=== PATIENT | female | born 1985 | race Caucasian/White ===

== ENCOUNTER 2016-06-10 22:03 | Emergency (ER) | payer MEDICAID ==
--- NOTE | 2016-06-10 22:19 | EDM.PDOC ---
ED HPI GENERAL MEDICAL PROBLEM - General Chief Complaint: General Stated Complaint: PT HAS ALLERGIC REACTION Time Seen by Provider: 06/10/16 22:08 - History of Present Illness INITIAL COMMENTS - FREE TEXT/NARRATIVE: HISTORY AND PHYSICAL: History of present illness: Patient is 30-year-old female with history of chronic pain syndrome related to breast reduction surgery and postoperative complications who was recently prescribed Dilaudid for pain and is here for some bridge therapy since she was unable to fill this tonight. Review of systems: As per history of present illness and below otherwise all systems reviewed and negative. Past medical history: As per history of present illness and as reviewed below otherwise noncontributory. Surgical history: As per history of present illness and as reviewed below otherwise noncontributory. Social history: No reported history of drug or alcohol abuse. Family history: As per history of present illness and as reviewed below otherwise noncontributory. Physical exam: Atraumatic normocephalic lungs clear to auscultation heart S1-S2 abdomen benign extremities benign neurologic alert and oriented with nonfocal exam Diagnostics: None Therapeutics: None Impression: #1 pain syndrome #2 history of breast reduction surgery with postoperative complication Definitive disposition and diagnosis as appropriate pending reevaluation and review of above. - Related Data Allergies Allergy/AdvReac Type Severity Reaction Status Date / Time adhesive Allergy Rash Verified 06/10/16 22:11 cefaclor [From Ceclor] Allergy Rash Verified 06/10/16 22:11 levofloxacin [From Levaquin] Allergy Rash Verified 06/10/16 22:11 oxycodone Allergy Rash Verified 06/10/16 22:11 Sulfa (Sulfonamide Allergy Rash Verified 06/10/16 22:11 Antibiotics) tramadol Allergy Rash Verified 06/10/16 22:11 Home Meds: Home Meds Albuterol [Proventil Neb Soln] 1 ampule NEB Q6H PRN 10/30/13 [History] Albuterol [Ventolin HFA] 2 puff INH Q6H 10/30/13 [History] Fexofenadine [Lisa] 30 mg PO DAILY 10/30/13 [History] Folic Acid 1 mg PO DAILY 10/30/13 [History] Iron 180 mg 10/30/13 [History] Lansoprazole [Prevacid] 30 mg PO DAILY 10/30/13 [History] Pedi Multivit #22/Vit D3/Vit K [Multivitamins Chewable Tablet] 1 each PO DAILY 10/30/13 [History] Acetaminophen/oxyCODONE [Percocet 325-5 MG] 1 tab PO Q4H PRN #1 tablet 11/02/13 [Rx] Albuterol [Proventil Neb Soln] 2.5 mg NEB QIDRT #1 neb 11/02/13 [Rx] Escitalopram [Lexapro] 10 mg PO DAILY #1 tablet 11/02/13 [Rx] Social & Family History - Tobacco Use Years of Tobacco use: 10 Used Tobacco, but Quit: No Month Tobacco Last Used: october Second Hand Smoke Exposure: Yes - Alcohol Use Days Per Week of Alcohol Use: 0 Number of Drinks Per Day: 0 Total Drinks Per Week: 0 - Recreational Drug Use Recreational Drug Use: No Drug Use in Last 12 Months: No ED ROS GENERAL - Review of Systems Review Of Systems: ROS reveals no pertinent complaints other than HPI. ED EXAM, GENERAL - Physical Exam Exam: See Below (See dictation) Departure - Departure Time of Disposition: 22:17 Disposition: Home, Self-Care 01 Condition: good Clinical Impression: Pain syndrome, chronic Forms: ED Department Discharge Additional Instructions: The following information is given to patients seen in the emergency department who are being discharged to home. This information is to outline your options for follow-up care. We provide all patients seen in our emergency department with a follow-up referral. The need for follow-up, as well as the timing and circumstances, are variable depending upon the specifics of your emergency department visit. If you don't have a primary care physician on staff, we will provide you with a referral. We always advise you to contact your personal physician following an emergency department visit to inform them of the circumstance of the visit and for follow-up with them and/or the need for any referrals to a consulting specialist. The emergency department will also refer you to a specialist when appropriate. This referral assures that you have the opportunity for followup care with a specialist. All of these measure are taken in an effort to provide you with optimal care, which includes your followup. Under all circumstances we always encourage you to contact your private physician who remains a resource for coordinating your care. When calling for followup care, please make the office aware that this follow-up is from your recent emergency room visit. If for any reason you are refused follow-up, please contact the [facility] emergency department at and asked to speak to the emergency department charge nurse. Medications as prescribed follow up primary medical doctor one to 2 days return as needed as discussed
[2016-06-10 23:13] VITALS: BP 132/83
== END 2016-06-10 22:48 | disposition home or self-care (01) ==
LOC: MW.ED 22:03
DX: G89.4 Chronic pain syndrome (principal); Z88.1 Allergy status to other antibiotic agents; Z88.2 Allergy status to sulfonamides; Z88.5 Allergy status to narcotic agent; Z88.8 Allergy status to other drugs, medicaments and biological substances; Z79.899 Other long term (current) drug therapy
CPT/HCPCS: 99281; 99282

== ENCOUNTER 2017-12-27 05:07 | Inpatient (IN) | payer MEDICAID ==
[2017-12-27] MEDS ORDERED: Sodium Chloride 0.9% 2.5 ML Syringe FLUSH PRN (05:27)
[2017-12-27] MEDS ORDERED: Citric Acid/Sodium Citrate Solution 30 ML Cup PO ONE (05:27)
[2017-12-27] MEDS ORDERED: Sodium Chloride 0.9% 10 ML Syringe FLUSH PRN (05:27)
[2017-12-27] MEDS ORDERED: Oxytocin/0.9 % Sodium Chloride 30 UNIT/500 ML BAG IV SCH (05:30)
[2017-12-27] MEDS ORDERED: Lactated Ringers 1,000 ML IV SCH ×2 (05:30→09:00)
[2017-12-27] MEDS ORDERED: Azithromycin 500 MG in Sodium Chloride 0.9% 250 ML IV ONE (05:35)
[2017-12-27] MEDS ORDERED: Albuterol/Ipratropium 3.0-0.5 MG/3 ML Neb Soln NEB ONE (05:36)
[2017-12-27] MEDS ORDERED: Ondansetron 4 MG/2 ML SDV ONE (06:24)
[2017-12-27] MEDS ORDERED: Morphine PF 1 MG/ML Amp ONE (06:24)
[2017-12-27] MEDS ORDERED: Oxytocin 10 Units/1 ML SDV ONE ×2 (06:24→08:29)
[2017-12-27] MEDS ORDERED: Phenylephrine 1% 10 MG/ML SDV ONE (06:26)
--- NOTE | 2017-12-27 07:00 | PCM.PREANE ---
Preanesthetic Assessment - Anesthesia/Transfusion/Family Hx Anesthesia History: Prior Anesthesia Without Reaction Other Type of Anesthesia Reaction Comment: DENIES ANY PROBLEMS WITH ANESTHESIA Family History of Anesthesia Reaction: No Transfusion History: Prior Transfusion Without Reaction - Review of Systems General: No Symptoms Pulmonary: Wheezing Cardiovascular: No Symptoms Gastrointestinal: No Symptoms Neurological: No Symptoms Other: Reports: None (Denies any personal or family history of bleeding or clotting problems) - Physical Assessment NPO Status Date: 12/26/17 NPO Status Time: 23:30 Height: 1.63 m Weight: 83.915 kg ASA Class: 2 Mental Status: Alert & Oriented x3 Airway Class: Mallampati = 2 Dentition: Reports: Normal Dentition Mouth Opening Finger Breadths: 3 ROM/Head Extension: Full Lungs: Wheezing - Lab Values: Laboratory Last Values WBC 14.36 K/uL (4.0-11.0) H 12/26/17 21:00 RBC 4.15 M/uL (4.30-5.90) L 12/26/17 21:00 Hgb 12.1 g/dL (12.0-16.0) 12/26/17 21:00 Hct 35.8 % (36.0-46.0) L 12/26/17 21:00 MCV 86.3 fL (80.0-98.0) 12/26/17 21:00 MCH 29.2 pg (27.0-32.0) 12/26/17 21:00 MCHC 33.8 g/dL (31.0-37.0) 12/26/17 21:00 RDW Std Deviation 42.6 fl (28.0-62.0) 12/26/17 21:00 RDW Coeff of Rula 14 % (11.0-15.0) 12/26/17 21:00 Plt Count 293 K/uL (150-400) 12/26/17 21:00 MPV 9.10 fL (7.40-12.00) 12/26/17 21:00 Nucleated RBC % 0.0 /100WBC 12/26/17 21:00 Nucleated RBCs # 0 K/uL 12/26/17 21:00 Blood Type O POSITIVE 12/26/17 21:00 Antibody Screen POSITIVE 12/26/17 21:00 Prewarmed Antibody Srcn NEGATIVE 12/26/17 21:00 Antibody Identification Cancelled 12/26/17 21:00 Cold Antibody Screen POSITIVE 12/26/17 21:00 - Allergies Allergies/Adverse Reactions: Allergies Allergy/AdvReac Type Severity Reaction Status Date / Time adhesive Allergy Rash Verified 12/24/17 16:11 cefaclor [From Ceclor] Allergy Rash Verified 12/24/17 16:11 hydrocodone [From Vicoprofen] Allergy Rash Verified 12/24/17 16:11 ibuprofen [From Vicoprofen] Allergy Rash Verified 12/24/17 16:11 levofloxacin [From Levaquin] Allergy Rash Verified 12/24/17 16:11 oxycodone Allergy Rash Verified 12/24/17 16:11 rizatriptan Allergy Rash Verified 12/24/17 16:11 Sulfa (Sulfonamide Allergy Rash Verified 12/24/17 16:11 Antibiotics) sumatriptan [From Imitrex] Allergy Rash Verified 12/24/17 16:11 tramadol Allergy Rash Verified 12/24/17 16:11 - Acknowledgements Anesthesia Type Planned: Spinal Pt an Appropriate Candidate for the Planned Anesthesia: Yes Alternatives and Risks of Anesthesia Discussed w Pt/Guardian: Yes Pt/Guardian Understands and Agrees with Anesthesia Plan: Yes Additional Comments: Patient received breathing treatment ordered by Dr. Cox and still has small amount wheezing bilaterally. Patient states she can feel it also. PreAnesthesia Questionnaire HEENT History: Reports: None Cardiovascular History: Reports: None Respiratory History: Reports: Asthma Gastrointestinal History: Reports: Other (See Below) Other Gastrointestinal History: heartburn with Genitourinary History: Reports: None [employer] History: Reports: Musculoskeletal History: Reports: None Neurological History: Reports: Migraines Psychiatric History: Reports: None Hematologic History: Reports: Blood Transfusion(s) - Infectious Disease History Infectious Disease History: Reports: None - Past Surgical History HEENT Surgical History: Reports: None Female Surgical History: Reports: Breast Reduction, Section - SUBSTANCE USE Smoking Status *Q: Current Every Day Smoker Tobacco Use Within Last Twelve Months: Cigarettes Recreational Drug Use History: No - HOME MEDS Home Medications: Home Meds Albuterol [Ventolin HFA] 2 puff INH Q6H PRN 10/30/13 [History] Folic Acid 1 mg PO DAILY 10/30/13 [History] Pedi Multivit #22/Vit D3/Vit K [Multivitamins Chewable Tablet] 1 tab CHEW DAILY 10/30/13 [History] Acetaminophen/Diphenhydramine [Tylenol Pm Ex-Strength Caplet] 2 tab PO BEDTIME PRN 11/15/17 [History] Cetirizine [ZyrTEC] 10 mg PO DAILY 11/15/17 [History] Clobetasol [Clobetasol Propionate 0.05% Cream] 1 applic TOP BID PRN 11/15/17 [ History] Cyclobenzaprine [Flexeril] 10 mg PO TID PRN 11/15/17 [History] Magnesium Oxide [Magnesium] 400 mg PO DAILY 11/15/17 [History] Montelukast [Singulair] 10 mg PO BEDTIME 11/15/17 [History] busPIRone [Buspar] 10 mg PO TID 11/15/17 [History] diphenhydrAMINE [Benadryl] 25 mg PO BEDTIME 11/15/17 [History] Albuterol/Ipratropium [DuoNeb 3.0-0.5 MG/3 ML] 1 inh NEB ASDIRECTED PRN [History] Budesonide/Formoterol Fumarate [Symbicort 160-4.5 Mcg Inhaler] 2 inhalation INH BID 12/24/17 [History] - CURRENT (IN HOUSE) MEDS Current Meds: Current Medications Lactated Ringer's (Ringers, Lactated) 1,000 mls @ 500 mls/hr IV BOLUS RIKY Oxytocin/Sodium Chloride (Oxytocin 30 Unit/500 Ml-Ns) 30 unit in 500 mls @ 250 mls/hr IV TITRATE RIKY Sodium Chloride (Saline Flush) 10 ml FLUSH ASDIRECTED PRN PRN Reason: Keep Vein Open Sodium Chloride (Saline Flush) 2.5 ml FLUSH ASDIRECTED PRN PRN Reason: Keep Vein Open Discontinued Medications Albuterol/Ipratropium (Duoneb 3.0-0.5 Mg/3 Ml) 3 ml NEB ONETIME ONE Stop: 12/27/17 05:37 Citric Acid/Sodium Citrate (Bicitra Solution) 30 ml PO ONETIME ONE Stop: 12/27/17 05:28 Azithromycin 500 mg/ Sodium (Chloride) 250 mls @ 250 mls/hr IV ONETIME ONE Stop: 12/27/17 06:34 Morphine Sulfate (Duramorph Pf) Confirm Administered Dose 1 mg .ROUTE .STK-MED ONE Stop: 12/27/17 06:25 Ondansetron HCl (Zofran) Confirm Administered Dose 4 mg .ROUTE .STK-MED ONE Stop: 12/27/17 06:25 Oxytocin (Pitocin) Confirm Administered Dose 20 unit .ROUTE .STK-MED ONE Stop: 12/27/17 06:25 Phenylephrine HCl (Jj-Synephrine) Confirm Administered Dose 10 mg .ROUTE .STK- MED ONE Stop: 12/27/17 06:27
[2017-12-27] MEDS ORDERED: Midazolam 1 MG/ML 2 ML SDV ONE ×2 (08:29→08:33)
[2017-12-27] MEDS ORDERED: Octyl 2-Cyanoacrylate 1 Tube ONE (08:44)
--- NOTE | 2017-12-27 08:59 | PCM.OPNOTE ---
- General Post-Op/Procedure Note Date of Surgery/Procedure: 12/27/17 Operative Procedure(s): repeat low transverse with bilateral salpingectomy Findings: Liveborn female 12/08 weight 3350 grams, complete breech presentation, normal appearing pelvis Pre Op Diagnosis: 37 weeks posterior placenta previa Post-Op Diagnosis: Same Anesthesia Technique: Spinal Primary Surgeon: Erica Cox Secondary Surgeon: New Hernandez Anesthesia Provider: Toy Bravo Clinical Nutrition Manager: Yamilet Kovacs Pathology: placenta, bilateral fallopian tubes. Fluid Replacement, Intraop: 1,000 Output, Urine Amount: 50 EBL in mLs: 500 Complications: None known Condition: Good
[2017-12-27] MEDS ORDERED: Lanolin 100% Cream 7 GM Tube TOP PRN (09:00)
[2017-12-27] MEDS ORDERED: Bisacodyl 10 MG Supp RECTAL PRN (09:00)
[2017-12-27] MEDS ORDERED: Ondansetron 4 MG/2 ML SDV IV PRN (09:00)
[2017-12-27] MEDS ORDERED: Naloxone 0.4 MG/ML Syringe IVPUSH PRN ×2 (09:17→09:29)
[2017-12-27] MEDS ORDERED: Nalbuphine 10 MG/1 ML Vial IVPUSH PRN (09:17)
[2017-12-27] MEDS: diphenhydrAMINE 50 MG/ML SDV IVPUSH PRN (09:24)
--- NOTE | 2017-12-27 09:26 | PCM.POSTAN ---
POST ANESTHESIA ASSESSMENT - MENTAL STATUS Mental Status: Alert, Oriented - RESPIRATORY Respiratory Status: Respiratory Rate WNL, Airway Patent, O2 Saturation Stable - CARDIOVASCULAR CV Status: Pulse Rate WNL, Blood Pressure Stable - GASTROINTESTINAL GI Status: No Symptoms - PAIN Pain Score: 0 - POST OP HYDRATION Hydration Status: Adequate & Stable
[2017-12-27] MEDS: Docusate Sodium 100 MG Cap PO SCH ×2 (11:51→23:53)
[2017-12-27] MEDS: Nalbuphine 10 MG/1 ML Vial IVPUSH PRN ×2 (11:52→15:37)
--- NOTE | 2017-12-27 13:58 | OR ---
SURGEON: Erica Cox M.D. DATE OF PROCEDURE: 12/27/2017 PREOPERATIVE DIAGNOSIS: Thirty-seven week intrauterine , posterior placenta previa, severe asthma, and desires sterilization. POSTOPERATIVE DIAGNOSIS: Thirty-seven week intrauterine , posterior placenta previa, severe asthma, and desires sterilization. PROCEDURE: Repeat low transverse section with bilateral salpingectomy. DEVELOPMENT COACH: Ced Hernandez MS4. ANESTHESIA: Spinal. ESTIMATED BLOOD LOSS: 500 mL. FLUIDS: 1000 mL crystalloid. FINDINGS: The live-born female, scores 9 and 9, weighing 3350 g in breech presentation. Normal-appearing uterus, tubes, and ovaries. COMPLICATIONS: None known. DISPOSITION: Mother is in recovery in good condition. is in nursery in good condition. BRIEF HISTORY: This is a 32-year-old female. She is G4, P3, with prior delivery. She has been followed throughout for placenta previa. This has been persistent through the third trimester, and therefore, she is scheduled for a repeat at 37 weeks' gestation. The placenta previa is posterior; however, I have discussed with her the possibility of morbid implantation of the placenta, including possible need for hysterectomy. She has had type and cross. She has had prior blood transfusions with prior deliveries. She has been anemic throughout the . She has smoked throughout the , despite counseling to discontinue smoking. She has severe asthma. She is not currently on steroids but has been on steroids during the . She takes nebulizer treatments every 4 to 6 hours at home. She desires permanent sterilization. Under no circumstance, desires future . She has been counseled regarding reversible forms of contraception and declines all. Due to risks associated with future pregnancies for her, she has been approved at the [facility] for permanent sterilization at the time of . She prefers salpingectomy over partial salpingectomy to reduce risk of failure, reduce risk of ectopic, and reduced risk of ovarian cancer. General risks of delivery were discussed including bleeding, infection, injury to bowel, bladder, blood vessels, ureters, or other organs, risk of thromboembolic event, and risk of anesthesia. Understanding all these risks, she does desire to proceed. DESCRIPTION OF PROCEDURE: With the patient in left tilt position, under adequate spinal analgesia, the abdomen was prepped with chlorhexidine and draped in usual fashion for abdominal surgery. SCDs were in place. Mckeon catheter had been placed and an appropriate time-out was held. She had received 500 mg of azithromycin IV due to multiple allergies. After appropriate documentation of adequate analgesia, the prior cicatrix was excised. Incision was carried through the subcutaneous tissue to the fascia, which was scored transversely in the midline. The fascial incision was extended laterally using curved Peterson scissors. The fascia was elevated from the underlying rectus muscle using sharp and blunt dissection. The rectus muscles were using Peterson scissors, and a finger was placed in the peritoneal cavity. There were no adhesions to the anterior abdominal wall. The incision was extended using sharp and blunt dissection. The [place] retractor was placed. The visceroperitoneum over the lower uterine segment was incised to develop an adequate bladder flap. A transverse curvilinear incision was made over the lower uterine segment with a scalpel. Clear fluid was noted. A finger was placed into the uterine cavity, and the incision was extended using blunt dissection. The breech was noted. It was complete breech. The feet were grasped and delivered via the uterine incision. The fetus was rotated to sacrum anterior position. The arms were swept across the chest, and with flexion of the head, the head was delivered via the uterine incision. The infant was a liveborn female, scores 9 and 9, weighing 3350 g. The infant was bulb suctioned by nose and mouth. The cord was clamped x2 and cut and the was handed to the nurse in attendance at delivery. The was a liveborn female, scores 9 and 9, weighing 3350 g. Cord blood was collected for cord ABGs, as well as routine cord blood sampling. Pitocin was initiated after delivery of the to assist with delivery of the placenta. The placenta seems to separate easily from the uterus and was removed by manual extraction. There was a small remaining fragment in the posterior lower uterine segment. I used a dry laparotomy tape to curette this out, and it was removed without difficulty and with no residual significant bleeding. The cervix was opened with a ring forceps. The uterus was again wiped clean with a dry laparotomy tape. There was no further retained placenta, and therefore, the uterine incision was closed with a running lock suture of 0 Polysorb, followed by an imbricating layer of 0 Polysorb. Several [id number] sutures were placed in the midline for complete hemostasis. The posterior cul-de-sac and pericolic gutters were irrigated and cleaned. The tubes and ovaries were inspected and appeared normal. I confirmed with Nuzhat that she does desire permanent sterilization with removal of the tubes, and therefore, the fimbria were grasped with a [place] clamp, elevated, and the mesosalpinx was transected using the Harmonic CHRIS setting of 3 to the proximal tube, which was transected at the cornua. This was repeated on the opposite side. The base of the mesosalpinx was inspected and was hemostatic. The tubes were sent to pathology, as was the placenta. The uterine incision was again inspected. It remained hemostatic. Therefore, the [place] retractor was removed. One final inspection was performed, again noting complete hemostasis. The rectus muscle and peritoneum were loosely approximated in the midline using a running mattress suture of 0 Polysorb. The posterior aspect of the fascia was inspected, and any areas of bleeding that were noted were cauterized. The fascial incision was closed with a running suture of 0 Vicryl. Subcutaneous tissue was copiously irrigated. Any areas of bleeding that were noted were cauterized. The skin was closed with a running subcuticular suture of 3-0 Monocryl followed by Dermabond. Final sponge, needle, and instrument counts were reported as correct. There were no known complications. Mother is in recovery in good condition. is in nursery in good condition. BRYNN JULES /[id number]
[2017-12-27] MEDS: Albuterol/Ipratropium 3.0-0.5 MG/3 ML Neb Soln NEB SCH ×2 (15:44→19:15)
[2017-12-27] MEDS: Acetaminophen/oxyCODONE 325-5 MG Tab PO PRN ×2 (16:44→23:50)
[2017-12-28] MEDS: Acetaminophen/oxyCODONE 325-5 MG Tab PO PRN ×5 (01:18→22:09)
[2017-12-28] MEDS: diphenhydrAMINE 50 MG/ML SDV IVPUSH PRN (02:14)
--- NOTE | 2017-12-28 05:16 | PCM48HPAN ---
Post Anesthesia Note - EVALUATION WITHIN 48HRS OF ANESTHETIC Vital Signs in Normal Range: Yes Patient Participated in Evaluation: Yes Respiratory Function Stable: Yes Airway Patent: Yes Cardiovascular Function Stable: Yes Hydration Status Stable: Yes Pain Control Satisfactory: Yes Nausea and Vomiting Control Satisfactory: Yes Mental Status Recovered: Yes Resp Rate: 18
--- NOTE | 2017-12-28 08:20 | PCM.PNPP ---
- General Info Date of Service: 12/28/17 Functional Status: Reports: Pain Controlled, Tolerating Diet, Ambulating, Urinating - Review of Systems General: Denies: Fever Pulmonary: Denies: Shortness of Breath, Cough Cardiovascular: Denies: Chest Pain, Palpitations Gastrointestinal: Denies: Abdominal Pain Genitourinary: Denies: Dysuria, Flank Pain - General Info Date of Service: 12/28/17 - Patient Data Vital Signs - Most Recent: Last Vital Signs Temp 36.4 C 12/28/17 04:00 Pulse 99 12/28/17 04:00 Resp 16 12/28/17 07:59 BP 107/61 12/28/17 07:59 Pulse Ox 96 12/28/17 07:59 Weight - Most Recent: 185 lb I&O - Last 24 Hours: Intake & Output 12/27/17 12/28/17 12/28/17 22:59 06:59 14:59 Intake Total 2223 Output Total 425 1900 Balance 1798 -1900 Lab Results - Last 24 Hours: Laboratory Results - last 24 hr 12/26/17 12/27/17 12/28/17 Range/Units 21:00 08:17 05:45 Hgb 9.4 L (12.0-16.0) g/dL Hct 28.6 L (36.0-46.0) % Cord ABG pH 7.291 (7.18-7.38) Cord ABG Base Excess -1 H (-10--2) Cord VBG pH 7.375 (7.25-7.45) Cord VBG Base Excess -1 H (-10--2) Blood Type O POSITIVE Antibody Screen POSITIVE Prewarmed Antibody Srcn NEGATIVE Antibody Identification Cancelled Cold Antibody Screen POSITIVE Crossmatch Prewarmed See Detail Med Orders - Current: Current Medications Albuterol/Ipratropium (Duoneb 3.0-0.5 Mg/3 Ml) 3 ml NEB Q8HRRT [facility] Last Admin: 12/27/17 19:15 Dose: 3 ml Bisacodyl (Dulcolax) 10 mg RECTAL ONETIME PRN PRN Reason: Constipation Diphenhydramine HCl (Benadryl) 25 mg IVPUSH Q6H PRN PRN Reason: Itching or Nausea Last Admin: 12/28/17 02:14 Dose: 25 mg Docusate Sodium (Colace) 100 mg PO BID [facility] Last Admin: 12/27/17 23:53 Dose: Not Given Emollient Ointment (Lansinoh Hpa) 0 gm TOP ASDIRECTED PRN PRN Reason: Sore Nipples Lactated Ringer's (Ringers, Lactated) 1,000 mls @ 125 mls/hr IV ASDIRECTED [facility]IK[facility] Last Admin: 12/27/17 15:03 Dose: 125 mls/hr Nalbuphine HCl (Nubain) 10 mg IVPUSH Q3H PRN PRN Reason: Pruritis Stop: 12/28/17 09:17 Last Admin: 12/27/17 15:37 Dose: 10 mg Naloxone HCl (Narcan) 0.1 mg IVPUSH ONETIME PRN PRN Reason: Respiratory Depression Stop: 12/28/17 09:17 Ondansetron HCl (Zofran) 4 mg IV Q4H PRN PRN Reason: Nausea/Vomiting Last Admin: 12/27/17 17:57 Dose: 4 mg Oxycodone/Acetaminophen (Percocet 325-5 Mg) 1 tab PO Q4H PRN PRN Reason: Pain (moderate 4-6) Last Admin: 12/28/17 01:18 Dose: 1 tab Oxycodone/Acetaminophen (Percocet 325-5 Mg) 2 tab PO Q4H PRN PRN Reason: Pain (moderate 4-6) Last Admin: 12/28/17 05:38 Dose: 2 tab Discontinued Medications Albuterol/Ipratropium (Duoneb 3.0-0.5 Mg/3 Ml) 3 ml NEB ONETIME ONE Stop: 12/27/17 05:37 Last Admin: 12/27/17 11:51 Dose: Not Given Citric Acid/Sodium Citrate (Bicitra Solution) 30 ml PO ONETIME ONE Stop: 12/27/17 05:28 Last Admin: 12/27/17 11:51 Dose: Not Given Azithromycin 500 mg/ Sodium (Chloride) 250 mls @ 250 mls/hr IV ONETIME ONE Stop: 12/27/17 06:34 Last Admin: 12/27/17 11:51 Dose: Not Given Lactated Ringer's (Ringers, Lactated) 1,000 mls @ 500 mls/hr IV BOLUS [facility] Last Admin: 12/27/17 07:09 Dose: 500 mls/hr Oxytocin/Sodium Chloride (Oxytocin 30 Unit/500 Ml-Ns) 30 unit in 500 mls @ 250 mls/hr IV TITRATE [facility] Midazolam HCl (Versed 1 Mg/Ml) Confirm Administered Dose 2 mg .ROUTE .STK-MED ONE Stop: 12/27/17 08:30 Midazolam HCl (Versed 1 Mg/Ml) Confirm Administered Dose 2 mg .ROUTE .STK-MED ONE Stop: 12/27/17 08:34 Morphine Sulfate (Duramorph Pf) Confirm Administered Dose 1 mg .ROUTE .STK-MED ONE Stop: 12/27/17 06:25 Nalbuphine HCl (Nubain) 10 mg IVPUSH Q3H PRN PRN Reason: Pruritis Stop: 12/28/17 09:17 Naloxone HCl (Narcan) 0.1 mg IVPUSH ONETIME PRN PRN Reason: Respiratory Depression Stop: 12/28/17 09:17 Octyl Cyanoacrylate (Dermabond Advance) Confirm Administered Dose 1 applic .ROUTE .STK-MED ONE Stop: 12/27/17 08:45 Ondansetron HCl (Zofran) Confirm Administered Dose 4 mg .ROUTE .STK-MED ONE Stop: 12/27/17 06:25 Oxytocin (Pitocin) Confirm Administered Dose 20 unit .ROUTE .STK-MED ONE Stop: 12/27/17 06:25 Oxytocin (Pitocin) Confirm Administered Dose 30 unit .ROUTE .STK-MED ONE Stop: 12/27/17 08:30 Phenylephrine HCl (Jj-Synephrine) Confirm Administered Dose 10 mg .ROUTE .STK- MED ONE Stop: 12/27/17 06:27 Sodium Chloride (Saline Flush) 10 ml FLUSH ASDIRECTED PRN PRN Reason: Keep Vein Open Sodium Chloride (Saline Flush) 2.5 ml FLUSH ASDIRECTED PRN PRN Reason: Keep Vein Open - Infant Interaction Infant Disposition, : [place] at Bedside Infant Feeding: Bottle Fed Infant Support Person: Mother, Significant Other, Other (see below) - Recovery Exam Fundal Tone: Firm Fundal Level: 1 Fingerbreadths Below Umbilicus Fundal Placement: Midline Lochia Amount: Small Lochia Color: Rubra/Red Perineum Description: Intact, Minimal Bruising/Swelling Episiotomy/Laceration: None Bladder Status: Voiding Urinary Elimination: Voided - Exam General: Alert, Oriented HEENT: Pupils Equal Lungs: Clear to Auscultation, Normal Respiratory Effort Cardiovascular: Regular Rate, Regular Rhythm GI/Abdominal Exam: Normal Bowel Sounds, Soft, Tender (Along incision) Extremities: Non-Tender, Pedal Edema Skin: Warm Wound/Incisions: Dressing Dry and Intact Psy/Mental Status: Alert, Normal Affect, Normal Mood - Problem List & Annotations (1) delivery delivered SNOMED Code(s): 178845036 Code(s): O82 - ENCOUNTER FOR DELIVERY WITHOUT INDICATION Status: Acute Current Visit: Yes - Problem List Review Problem List Initiated/Reviewed/Updated: Yes - Assessment Assessment:: POD#1 s/p RLTCS at 37 weeks with BTL for asymptomatic placenta previa, stable and afebrile. Pain is well controlled on Percocet Severe asthma- Doing well with regualr breath treatments and PRN inhalers - Plan Plan:: Continue current management and aim for discharge tomorrow
[2017-12-28] MEDS: Albuterol/Ipratropium 3.0-0.5 MG/3 ML Neb Soln NEB SCH ×3 (08:23→21:36)
[2017-12-28] MEDS: Docusate Sodium 100 MG Cap PO SCH ×2 (09:16→22:09)
[2017-12-29] MEDS: Acetaminophen/oxyCODONE 325-5 MG Tab PO PRN ×3 (03:58→14:09)
[2017-12-29] MEDS: Albuterol/Ipratropium 3.0-0.5 MG/3 ML Neb Soln NEB SCH ×2 (05:58→14:07)
[2017-12-29] MEDS: Docusate Sodium 100 MG Cap PO SCH (08:35)
--- NOTE | 2017-12-29 10:15 | PCM.PNPP ---
- General Info Date of Service: 12/29/17 Functional Status: Reports: Pain Controlled, Tolerating Diet, Ambulating, Urinating - Review of Systems General: Denies: Fever HEENT: Denies: Headaches Pulmonary: Denies: Shortness of Breath, Pleuritic Chest Pain Cardiovascular: Denies: Chest Pain, Palpitations, Dyspnea on Exertion Gastrointestinal: Reports: Abdominal Pain (Burning along incision) Genitourinary: Denies: Dysuria, Flank Pain Musculoskeletal: Reports: Back Pain (Burning lower back) Psychiatric: Denies: Depression, Mood Lability, Anxiety - General Info Date of Service: 12/29/17 - Patient Data Vital Signs - Most Recent: Last Vital Signs Temp 36.3 C 12/29/17 08:00 Pulse 106 H 12/29/17 08:00 Resp 18 12/29/17 08:00 BP 101/65 12/29/17 08:00 Pulse Ox 96 12/29/17 08:00 Weight - Most Recent: 185 lb Lab Results - Last 24 Hours: Laboratory Results - last 24 hr 12/26/17 Range/Units 21:00 Cold Antibody Screen POSITIVE Med Orders - Current: Current Medications Albuterol/Ipratropium (Duoneb 3.0-0.5 Mg/3 Ml) 3 ml NEB Q8HRRT [facility] Last Admin: 12/29/17 05:58 Dose: 3 ml Bisacodyl (Dulcolax) 10 mg RECTAL ONETIME PRN PRN Reason: Constipation Cyclobenzaprine HCl (Flexeril) 10 mg PO BEDTIME PRN PRN Reason: Pain Last Admin: 12/28/17 22:10 Dose: 10 mg Diphenhydramine HCl (Benadryl) 25 mg IVPUSH Q6H PRN PRN Reason: Itching or Nausea Last Admin: 12/28/17 02:14 Dose: 25 mg Docusate Sodium (Colace) 100 mg PO BID [facility] Last Admin: 12/29/17 08:35 Dose: 100 mg Emollient Ointment (Lansinoh Hpa) 0 gm TOP ASDIRECTED PRN PRN Reason: Sore Nipples Lactated Ringer's (Ringers, Lactated) 1,000 mls @ 125 mls/hr IV ASDIRECTED [facility]IK[facility] Last Admin: 12/27/17 15:03 Dose: 125 mls/hr Ondansetron HCl (Zofran) 4 mg IV Q4H PRN PRN Reason: Nausea/Vomiting Last Admin: 12/27/17 17:57 Dose: 4 mg Oxycodone/Acetaminophen (Percocet 325-5 Mg) 1 tab PO Q4H PRN PRN Reason: Pain (moderate 4-6) Last Admin: 12/29/17 08:35 Dose: 1 tab Oxycodone/Acetaminophen (Percocet 325-5 Mg) 2 tab PO Q4H PRN PRN Reason: Pain (moderate 4-6) Last Admin: 12/29/17 03:58 Dose: 2 tab Discontinued Medications Albuterol/Ipratropium (Duoneb 3.0-0.5 Mg/3 Ml) 3 ml NEB ONETIME ONE Stop: 12/27/17 05:37 Last Admin: 12/27/17 11:51 Dose: Not Given Citric Acid/Sodium Citrate (Bicitra Solution) 30 ml PO ONETIME ONE Stop: 12/27/17 05:28 Last Admin: 12/27/17 11:51 Dose: Not Given Azithromycin 500 mg/ Sodium (Chloride) 250 mls @ 250 mls/hr IV ONETIME ONE Stop: 12/27/17 06:34 Last Admin: 12/27/17 11:51 Dose: Not Given Lactated Ringer's (Ringers, Lactated) 1,000 mls @ 500 mls/hr IV BOLUS [facility] Last Admin: 12/27/17 07:09 Dose: 500 mls/hr Oxytocin/Sodium Chloride (Oxytocin 30 Unit/500 Ml-Ns) 30 unit in 500 mls @ 250 mls/hr IV TITRATE [facility] Midazolam HCl (Versed 1 Mg/Ml) Confirm Administered Dose 2 mg .ROUTE .STK-MED ONE Stop: 12/27/17 08:30 Midazolam HCl (Versed 1 Mg/Ml) Confirm Administered Dose 2 mg .ROUTE .STK-MED ONE Stop: 12/27/17 08:34 Morphine Sulfate (Duramorph Pf) Confirm Administered Dose 1 mg .ROUTE .STK-MED ONE Stop: 12/27/17 06:25 Nalbuphine HCl (Nubain) 10 mg IVPUSH Q3H PRN PRN Reason: Pruritis Stop: 12/28/17 09:17 Nalbuphine HCl (Nubain) 10 mg IVPUSH Q3H PRN PRN Reason: Pruritis Stop: 12/28/17 09:17 Last Admin: 12/27/17 15:37 Dose: 10 mg Naloxone HCl (Narcan) 0.1 mg IVPUSH ONETIME PRN PRN Reason: Respiratory Depression Stop: 12/28/17 09:17 Naloxone HCl (Narcan) 0.1 mg IVPUSH ONETIME PRN PRN Reason: Respiratory Depression Stop: 12/28/17 09:17 Octyl Cyanoacrylate (Dermabond Advance) Confirm Administered Dose 1 applic .ROUTE .STK-MED ONE Stop: 12/27/17 08:45 Ondansetron HCl (Zofran) Confirm Administered Dose 4 mg .ROUTE .STK-MED ONE Stop: 12/27/17 06:25 Oxytocin (Pitocin) Confirm Administered Dose 20 unit .ROUTE .STK-MED ONE Stop: 12/27/17 06:25 Oxytocin (Pitocin) Confirm Administered Dose 30 unit .ROUTE .STK-MED ONE Stop: 12/27/17 08:30 Phenylephrine HCl (Jj-Synephrine) Confirm Administered Dose 10 mg .ROUTE .STK- MED ONE Stop: 12/27/17 06:27 Sodium Chloride (Saline Flush) 10 ml FLUSH ASDIRECTED PRN PRN Reason: Keep Vein Open Sodium Chloride (Saline Flush) 2.5 ml FLUSH ASDIRECTED PRN PRN Reason: Keep Vein Open - Interaction Disposition, : at Bedside Feeding: Bottle Fed Infant Support Person: Mother, Significant Other, Other (see below) - Recovery Exam Fundal Tone: Firm Fundal Level: 1 Fingerbreadths Below Umbilicus Fundal Placement: Midline Lochia Amount: Scant Lochia Color: Rubra/Red Perineum Description: Intact, Minimal Bruising/Swelling Episiotomy/Laceration: Approximated Bladder Status: Voiding Urinary Elimination: Voided - Exam General: Alert, Oriented Lungs: Clear to Auscultation, Normal Respiratory Effort Cardiovascular: Regular Rate, Regular Rhythm GI/Abdominal Exam: Soft, Non-Tender, No Organomegaly Extremities: Non-Tender, Pedal Edema Skin: Warm Wound/Incisions: Healing Well Psy/Mental Status: Alert, Normal Affect, Normal Mood - Problem List & Annotations (1) delivery delivered SNOMED Code(s): 446416161 Code(s): O82 - ENCOUNTER FOR DELIVERY WITHOUT INDICATION Status: Acute Current Visit: Yes - Problem List Review Problem List Initiated/Reviewed/Updated: Yes - My Orders Last 24 Hours: My Active Orders 12/28/17 20:00 Cyclobenzaprine [Flexeril] 10 mg PO BEDTIME PRN - Assessment Assessment:: POD#2 s/p RLTCS at 37 weeks with BTL for asymptomatic placenta previa. She is doing well Severe asthma- Controlled with breathing treatments and PRN inhalers - Plan Plan:: Discharge instructions reviewed Nothing in the vagina in 6 weeks Prescription for precocet written Bleeding and infection precautions reviewed Incision care reviewed S/S of blues vs depression reviewed, encouraged to contact provider with any concerns Follow up in 2 and 6 weeks at [facility]
[2017-12-29 15:53] VITALS: BP 104/66
== END 2017-12-29 17:25 | disposition home or self-care (01) | DRG 766 ==
LOC: UNDOADMIN 05:07 → MW.OB 05:07
PROVIDERS: ADMIT Obstetrics & Gynecology; ATTEND Obstetrics & Gynecology
PROC: 10D00Z1 Extraction of Products of Conception, Low, Open Approach (ICD-10-PCS; principal; 2017-12-27)
PROC: 0UT70ZZ Resection of Bilateral Fallopian Tubes, Open Approach (ICD-10-PCS; 2017-12-27)
PROC: 6A550ZT Pheresis of Cord Blood Stem Cells, Single (ICD-10-PCS; 2017-12-27)
DX: O44.03 Complete placenta previa NOS or without hemorrhage, third trimester (principal); O32.1XX0 Maternal care for breech presentation, not applicable or unspecified; J45.909 Unspecified asthma, uncomplicated; O99.334 Smoking (tobacco) complicating childbirth; F17.210 Nicotine dependence, cigarettes, uncomplicated; Z3A.37 37 weeks gestation of pregnancy; Z37.0 Single live birth; Z88.8 Allergy status to other drugs, medicaments and biological substances
CPT/HCPCS: 36415; 59025; 82803; 85014; 85018; 85027; 86156; 86850; 86900; 86901; 86922; 94640; A9270-GY; J1200; J2250; J2274; J2300; J2370; J2405; J2590; J7120; J7620-GY

== ENCOUNTER 2020-01-15 02:33 | Emergency (ER) | payer MEDICAID ==
--- NOTE | 2020-01-15 02:38 | EDM.PDOC ---
ED HPI GENERAL MEDICAL PROBLEM - General Stated Complaint: MED. CLEARANCE Time Seen by Provider: 01/15/20 02:35 - History of Present Illness INITIAL COMMENTS - FREE TEXT/NARRATIVE: HISTORY AND PHYSICAL: History of present illness: 34-year-old female who presents ER today for medical clearance by law enforcement. Patient currently is without any complaints and requesting not to get medically cleared want to go to long term. Patient denies any fevers, shakes, chills, nausea, vomiting, diarrhea, cough, URI symptoms, shortness of breath, abdominal pain. Patient reports possible Covid exposure approximate 1 week ago but currently is asymptomatic. Review of systems: As per history of present illness and below otherwise all systems reviewed and negative. Past medical history: As per history of present illness and as reviewed below otherwise noncon tributory. Surgical history: As per history of present illness and as reviewed below otherwise noncontributory. Social history: No reported history of drug or alcohol abuse. Family history: As per history of present illness and as reviewed below otherwise noncontributory. Physical exam: Constitutional: Patient is oriented to person, place, and time. Appears well- developed and well-nourished. No distress. HEENT: Moist mucous membranes Head: Normocephalic and atraumatic Eyes: Right eye exhibits no discharge. Left eye exhibits no discharge. No scleral icterus Neck: Normal range of motion. No tracheal deviation present. Cardiovascular: Normal rate and regular rhythm. Pulmonary: Effort normal, no respiratory distress. Abdominal: No distention Musculoskeletal: Normal range of motion Neurologic: Alert and oriented to person, place and time. Skin: [place], warm and dry. Psychiatric: Normal mood and affect. Behavior is normal. Judgment and thought content normal. Nursing note and vital signs have been reviewed Assessment and plan: 32-year-old female who is here for medical clearance. Patient is alert awake and orient x3. Patient is refusing evaluation by me in the ED is requesting be transferred to long term. Patient has no complaints at this time. Patient is exhibiting both the capacity as well as competency for medical decision-making at this time. Patient's physical exam appears to be unremarkable. Patient be discharged with law enforcement. Definitive disposition and diagnosis as appropriate pending reevaluation and review of above. - Related Data Allergies Allergy/AdvReac Type Severity Reaction Status Date / Time adhesive Allergy Rash Verified 12/24/17 16:11 cefaclor [From Ceclor] Allergy Rash Verified 12/24/17 16:11 hydrocodone [From Vicoprofen] Allergy Rash Verified 12/24/17 16:11 ibuprofen [From Vicoprofen] Allergy Rash Verified 12/24/17 16:11 levofloxacin [From Levaquin] Allergy Rash Verified 12/24/17 16:11 oxycodone Allergy Rash Verified 12/24/17 16:11 rizatriptan Allergy Rash Verified 12/24/17 16:11 Sulfa (Sulfonamide Allergy Rash Verified 12/24/17 16:11 Antibiotics) sumatriptan [From Imitrex] Allergy Rash Verified 12/24/17 16:11 tramadol Allergy Rash Verified 12/24/17 16:11 Home Meds: Home Meds Albuterol [Ventolin HFA] 2 puff INH Q6H PRN 10/30/13 [History] Folic Acid 1 mg PO DAILY 10/30/13 [History] Pedi Multivit #22/Vit D3/Vit K [Multivitamins Chewables Tablet] 1 tab CHEW DAILY 10/30/13 [History] Acetaminophen/Diphenhydramine [Tylenol Pm Ex-Strength Caplet] 2 tab PO BEDTIME PRN 11/15/17 [History] Cetirizine [ZyrTEC] 10 mg PO DAILY 11/15/17 [History] Clobetasol [Clobetasol Propionate 0.05% Cream] 1 applic TOP BID PRN 11/15/17 [History] Cyclobenzaprine [Flexeril] 10 mg PO TID PRN 11/15/17 [History] Magnesium Oxide [Magnesium] 400 mg PO DAILY 11/15/17 [History] Montelukast [Singulair] 10 mg PO BEDTIME 11/15/17 [History] busPIRone [Buspar] 10 mg PO TID 11/15/17 [History] diphenhydrAMINE [Benadryl] 25 mg PO BEDTIME 11/15/17 [History] Albuterol/Ipratropium [DuoNeb 3.0-0.5 MG/3 ML] 1 inh NEB ASDIRECTED PRN 12/24/17 [History] Budesonide/Formoterol Fumarate [Symbicort 160-4.5 Mcg Inhaler] 2 inhalation INH BID 12/24/17 [History] Acetaminophen/oxyCODONE [Percocet 325-5 MG] 1 tab PO Q4H PRN 5 Days #20 tablet 12/28/17 [Rx] Albuterol/Ipratropium [DuoNeb 3.0-0.5 MG/3 ML] 3 ml NEB Q8HRRT neb 12/28/17 [Rx] Docusate Sodium [Colace] 100 mg PO BID cap 12/28/17 [Rx] Past Medical History HEENT History: Reports: Allergic Rhinitis Cardiovascular History: Reports: None Respiratory History: Reports: Asthma Gastrointestinal History: Reports: Other (See Below) Other Gastrointestinal History: heartburn with Genitourinary History: Reports: None [employer] History: Reports: Musculoskeletal History: Reports: None Neurological History: Reports: Migraines Psychiatric History: Reports: Anxiety Hematologic History: Reports: Blood Transfusion(s) - Infectious Disease History Infectious Disease History: Reports: None - Past Surgical History HEENT Surgical History: Reports: Oral Surgery Female Surgical History: Reports: Breast Reduction, Section, D&C Social & Family History - Family History Family Medical History: Noncontributory - Caffeine Use Caffeine Use: Reports: None ED ROS GENERAL - Review of Systems Review Of Systems: See Below ED EXAM, GENERAL - Physical Exam Exam: See Below Departure - Departure Time of Disposition: 02:36 Disposition: DC/Tfer to Court of Law En 21 Condition: Good Clinical Impression: Medical clearance for incarceration, Alcohol use - Discharge Information Instructions: Medical Screening Exam Additional Instructions: The following information is given to patients seen in the emergency department who are being discharged to home. This information is to outline your options for follow-up care. We provide all patients seen in our emergency department with a follow-up referral. The need for follow-up, as well as the timing and circumstances, are variable depending upon the specifics of your emergency department visit. If you don't have a primary care physician on staff, we will provide you with a referral. We always advise you to contact your personal physician following an emergency department visit to inform them of the circumstance of the visit and for follow-up with them and/or the need for any referrals to a consulting specialist. The emergency department will also refer you to a specialist when appropriate. This referral assures that you have the opportunity for follow-up care with a specialist. All of these measure are taken in an effort to provide you with optimal care, which includes your follow-up. Under all circumstances we always encourage you to contact your private physician who remains a resource for coordinating your care. When calling for follow-up care, please make the office aware that this follow-up is from your recent emergency room visit. If for any reason you are refused follow-up, please contact the [facility] Emergency Depa rtment at and asked to speak to the emergency department charge nurse.
== END 2020-01-15 02:44 ==
LOC: MW.ED 02:33
DX: Z02.89 Encounter for other administrative examinations (principal); Z72.89 Other problems related to lifestyle; J45.909 Unspecified asthma, uncomplicated; F41.9 Anxiety disorder, unspecified; Z88.5 Allergy status to narcotic agent; Z88.6 Allergy status to analgesic agent; Z88.2 Allergy status to sulfonamides; Z88.8 Allergy status to other drugs, medicaments and biological substances; Z91.09 Other allergy status, other than to drugs and biological substances; Z79.899 Other long term (current) drug therapy
CPT/HCPCS: 99282; 99283

== ENCOUNTER 2023-12-02 23:26 | Emergency (ER) | payer MEDICAID ==
[2023-12-03 00:21] VITALS: BP 145/95
[2023-12-03 02:01] VITALS: PULSE 118
== END 2023-12-03 02:02 | disposition home or self-care (01) ==
LOC: MW.ED 23:26
DX: F10.920 Alcohol use, unspecified with intoxication, uncomplicated (principal); J45.909 Unspecified asthma, uncomplicated; Z79.899 Other long term (current) drug therapy; Z91.048 Other nonmedicinal substance allergy status; Z88.1 Allergy status to other antibiotic agents; Z88.5 Allergy status to narcotic agent; Z88.6 Allergy status to analgesic agent; Z88.2 Allergy status to sulfonamides; Z88.9 Allergy status to unspecified drugs, medicaments and biological substances; Z75.8 Other problems related to medical facilities and other health care
CPT/HCPCS: 99283; 99284